=== PATIENT | female | born 2000 | race Caucasian/White ===

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

== ENCOUNTER 2019-01-02 08:41 | Emergency (ER) | payer MEDICAID ==
--- NOTE | 2019-01-02 08:51 | Emergency Department Record ---
History of Present Illness - General Chief complaint: complication Stated complaint: NAUSEATED Time Seen by Provider: 01/02/19 08:42 Source: Patient Mode of Arrival: Ambulatory Limitations: No limitations - History of Present Illness Initial comments: The patient is a female who is 19 weeks by US who has had a chronic problem with nausea since being and is now out of [facility]. She has come to the ER multiple times for it and has not contacted her OB. The patient denies any other issues and is NOT having any pain, bleeding, cramping, dysuria, or fever. MD Complaint: Other - Related Data Previous Rx's Medication Instructions Recorded Ondansetron [Zofran Odt] 4 mg SL .Q4-6H PRN #12 tab.brittnidis 11/29/18 Ondansetron [Zofran Odt] 4 mg PO Q8H PRN #20 tab.rapdis 12/13/18 Allergies Allergy/AdvReac Type Severity Reaction Status Date / Time Penicillins Allergy PT UNSURE Verified 01/02/19 08:52 OF REACTION Review of Systems Constitutional: Denies: Chills, Fever Eyes: Denies: Eye discharge ENT: Denies: Congestion Respiratory: Denies: Cough, Dyspnea Past Medical History - SOCIAL HISTORY Smoking Status: Never smoker - RESPIRATORY Hx Respiratory Disorders: Yes Hx Asthma: Yes - CARDIOVASCULAR Hx Cardio Disorders: No Comment:: mom states ?heart stent as a baby when she was premature - NEURO Hx Neuro Disorders: Yes Hx Dizziness: Yes - GI Hx GI Disorders: Yes Hx Reflux: Yes Hx Nausea/Vomiting: Yes (Chronic) - Hx Genitourinary Disorders: No Comment:: Now - ENDOCRINE Hx Endocrine Disorders: No - MUSCULOSKELETAL Hx Musculoskeletal Disorders: No - PSYCH Hx Psych Problems: Yes Hx Depression: Yes - HEMATOLOGY/ONCOLOGY Hx Hematology/Oncology Disorders: No Family Medical History Hx Diabetes: Grandparents Hx HTN: Mother Physical Exam - General General Appearance: Alert, Oriented x3, Cooperative, No acute distress - Head Head exam: Atraumatic, Normocephalic - Eye Eye exam: Normal appearance - Neck Neck exam: Normal inspection, Full ROM. negative: Tenderness - Respiratory Respiratory exam: Normal lung sounds bilaterally. negative: Respiratory distress - Cardiovascular Cardiovascular Exam: Regular rate, Normal rhythm, Normal heart sounds - GI/Abdominal GI/Abdominal exam: Soft, Normal bowel sounds. negative: Rebound, Rigid, Tenderness - Extremities Extremities exam: Normal inspection, Full ROM, Normal capillary refill. negative: Tenderness - Neurological Neurological exam: Alert, Normal gait. negative: Abnormal gait, Motor sensory deficit - Psychiatric Psychiatric exam: negative: Anxious Course - Reevaluation(s) Reevaluation #1: I did discuss the case with Dr. Love who is literacy education professor for the patient's OB Dr. Devlin and she does agree with the plan to discharge and have the patient contact their office for further nausea medicine. 01/02/19 08:54 Reevaluation #2: FHT's 125. 01/02/19 09:03 Disposition Disposition: Discharge Clinical Impression: Nausea and vomiting during Disposition: Home, Self-Care Condition: (2) Stable Instructions: (ED) Additional Instructions: Please call your OB doctors office for further instructions. Forms: Patient Portal Access Time of Disposition: 08:56 Quality - Quality Measures Quality Measures: Adult Bronchitis (18-64yr) - Adult Bronchitis Quality Measure: Measure #116: Avoidance of ABX w/Adult Bronchitis ICD10 Codes Entered: Yes View Details: Yes Is patient being admitted: No Avoidance of ABX w/Bronchitis: <ABX neither prescribed nor dispensed> [4124F] - Blood Pressure Screening View Details: Yes Does Patient Have Any of the Following: No Blood Pressure Classification: Normal BP Reading Systolic Measurement: 113 Diastolic Measurement: 75 Screening for High Blood Pressure: < Normal BP, F/U Not Required > [G8783]
== END 2019-01-02 09:13 | disposition home or self-care (01) ==
LOC: ER 08:41
DX: O21.0 Mild hyperemesis gravidarum (principal); Z3A.19 19 weeks gestation of pregnancy
CPT/HCPCS: 99283

== ENCOUNTER 2019-05-07 13:31 | Emergency (ER) | payer MEDICAID ==
--- NOTE | 2019-05-07 14:39 | Emergency Department Record ---
History of Present Illness - General Chief complaint: complication Stated complaint: /CRAMPS Time Seen by Provider: 05/07/19 14:26 Source: Patient, RN notes reviewed Mode of Arrival: Ambulatory - History of Present Illness Initial comments: Patient is and due June 02 and she did have Dr Devlin but since Jan no Dr because of an insurance change and Grandmother is trying to get her into OB at [facility]. Patient 8 months preg and she had one US done and she did have blood work done. Currently she has [employer] complete and she had one cramp at 8 am today and one cramp 10 minute ago. Patient denies vaginal bleeding and denies vaginal discharge. Grandmother and father her with patient. No dysuria and no fevers or coughing. Patient would like to deliver at [facility]. Onset/Timin -: Days(s) Severity: Moderate Severity scale (1-10): 6 Quality: Cramping Consistency: Intermittent Improves with: None Worsens with: None Associated symptoms: Denies other symptoms Vaginal bleeding: None Number of weeks : 36 Pre-zach care: None - Related Data Previous Rx's Medication Instructions Recorded Ondansetron [Zofran Odt] 4 mg SL .Q4-6H PRN #12 tab.rapdis 11/29/18 Ondansetron [Zofran Odt] 4 mg PO Q8H PRN #20 tab.rapdis 12/13/18 Allergies Allergy/AdvReac Type Severity Reaction Status Date / Time Penicillins Allergy PT UNSURE Unverified 01/02/19 13:24 OF REACTION Review of Systems Reviewed: No additional complaints except as noted below Constitutional: Reports: As per HPI. Denies: Chills, Fever, Malaise, Night sweats, Weakness, Weight change Eyes: Reports: As per HPI. Denies: Eye discharge, Eye pain, Photophobia, Vision change ENT: Reports: As per HPI. Denies: Congestion, Dental pain, Ear pain, Epistaxis, Hearing loss, Throat pain Respiratory: Reports: As per HPI. Denies: Cough, Dyspnea, Hemoptysis, Stridor, Wheezes Cardiovascular: Reports: As per HPI. Denies: Arrhythmia, Chest pain, Dyspnea on exertion, Edema, Murmurs, Orthopnea, Palpitations, Paroxysmal nocturnal dyspnea, Rheumatic Fever, Syncope Endocrine: Reports: As per HPI. Denies: Fatigue, Heat or cold intolerance, Polydipsia, Polyuria Gastrointestinal: Reports: As per HPI. Denies: Abdominal pain, Constipation, Diarrhea, Hematemesis, Hematochezia, Melena, Nausea, Vomiting Genitourinary: Reports: As per HPI, Other ( 36 weeks). Denies: Abnormal menses, Discharge, Dyspareunia, Dysuria, Frequency, Hematuria, Incontinence, Retention, Urgency Musculoskeletal: Reports: As per HPI. Denies: Arthralgia, Back pain, Gout, Joint swelling, Myalgia, Neck pain Skin: Reports: As per HPI. Denies: Bruising, Change in color, Change in hair/nails, Lesions, Pruritus, Rash Neurological: Reports: As per HPI. Denies: Abnormal gait, Confusion, Headache, Numbness, Paresthesias, Seizure, Tingling, Tremors, Vertigo, Weakness Psychiatric: Reports: As per HPI. Denies: Anxiety, Auditory hallucinations, Depression, Homicidal thoughts, Suicidal thoughts, Visual hallucinations Hematological/Lymphatic: Reports: As per HPI. Denies: Anemia, Blood Clots, Easy bleeding, Easy bruising, Swollen glands Past Medical History - SOCIAL HISTORY Smoking Status: Never smoker Alcohol Use: None Drug Use: None - RESPIRATORY Hx Respiratory Disorders: Yes Hx Asthma: Yes - CARDIOVASCULAR Hx Cardio Disorders: No Comment:: mom states ?heart stent as a baby when she was premature - NEURO Hx Neuro Disorders: Yes Hx Dizziness: Yes - GI Hx GI Disorders: Yes Hx Reflux: Yes Hx Nausea/Vomiting: Yes (Chronic) - Hx Genitourinary Disorders: No Comment:: Now - ENDOCRINE Hx Endocrine Disorders: No - MUSCULOSKELETAL Hx Musculoskeletal Disorders: No - PSYCH Hx Psych Problems: Yes Hx Depression: Yes - HEMATOLOGY/ONCOLOGY Hx Hematology/Oncology Disorders: No Family Medical History Any Significant Family History?: Yes Hx Diabetes: Grandparents Hx HTN: Mother Physical Exam - General General Appearance: Alert, Oriented x3, Cooperative, No acute distress - Head Head exam: Normal inspection - Eye Eye exam: Normal appearance, PERRL Pupils: Normal accommodation - ENT ENT exam: Normal exam, Mucous membranes moist, Normal external ear exam, Normal orophraynx, TM's normal bilaterally Ear exam: Normal external inspection. negative: External canal tenderness Nasal Exam: Normal inspection. negative: Discharge, Sinus tenderness Mouth exam: Normal external inspection, Tongue normal Teeth exam: Normal inspection. negative: Dental caries Throat exam: Normal inspection. negative: Tonsillar erythema, Tonsillar exudate - Neck Neck exam: Normal inspection, Full ROM. negative: Tenderness - Respiratory Respiratory exam: Normal lung sounds bilaterally. negative: Respiratory distress - Cardiovascular Cardiovascular Exam: Regular rate, Normal rhythm, Normal heart sounds - GI/Abdominal GI/Abdominal exam: Soft, Normal bowel sounds. negative: Tenderness - Rectal Rectal exam: Deferred - exam: Other (bimanual cervix fingertip) - Extremities Extremities exam: Normal inspection, Full ROM, Normal capillary refill. negative: Tenderness - Back Back exam: Reports: Normal inspection, Full ROM. Denies: Muscle spasm, Rash noted, Tenderness - Neurological Neurological exam: Alert, Normal gait, Oriented X3, Reflexes normal - Psychiatric Psychiatric exam: Normal affect, Normal mood - Skin Skin exam: Dry, Intact, Normal color, Warm Course Vital Signs 05/07/19 13:42 Temperature 97.8 F Pulse Rate 100 H Respiratory 20 Rate Blood Pressure 113/66 Pulse Ox 97 - Reevaluation(s) Reevaluation #1: mom feels motion and heart tones 124. Will call [facility] OB liquefaction and regasification helper. No OB here. 05/07/19 15:26 Reevaluation #2: discussed case with Dr Reddy at [facility] and will transfer the patient to [facility] OB [address] [facility] for evaluation. Pateint chart obtained from Dr Devlin's office and she is O positive and US from dec shows single fetus. 05/07/19 15:59 Medical Decision Making - Lab Data Result diagrams: 05/07/19 14:50 05/07/19 14:50 Disposition Clinical Impression: Qualifiers: Weeks of gestation: 36 weeks Qualified Code(s): Z3A.36 - 36 weeks gestation of Disposition: Acute Care Hospital Transfer Instructions: Early Labor Signs (ED) Additional Instructions: Go to [facility] OB [address] [facility] for evaluation at OB triage Forms: Patient Portal Access Time of Disposition: 16:05 Quality - Quality Measures Quality Measures: N/A - Adult Bronchitis ICD10 Codes Entered: Yes Is patient being admitted: No Avoidance of ABX w/Bronchitis: <ABX neither prescribed nor dispensed> [4124F] - Blood Pressure Screening Does Patient Have Any of the Following: No Blood Pressure Classification: Normal BP Reading Systolic Measurement: 113 Diastolic Measurement: 66 Screening for High Blood Pressure: < Normal BP, F/U Not Required > [G1774]
[2019-05-07 15:18] LABS: ABSOLUTE NEUTROPHIL COUNT 4.39; BASO % 0.2 % (0-6); EOS % 1.1 % (0-6); GRAN % 67.3 % (47-80); HEMATOCRIT 41.4 % (35.0-47.0); HEMOGLOBIN 13.3 gm/dl (11.6-16.0); LYMPH % 24.5 % (16-45); MEAN CELL VOLUME 88.7 fl (81-97); MEAN CORPUSCULAR HEMOGLOBIN 28.5 pg (27-33); MEAN CORPUSCULAR HGB CONC 32.1 g/dl (32-36); MEAN PLATELET VOLUME 9.4 fl (7.4-10.4); MONO % 6.9 % (0-9); PLATELET COUNT 223 K/uL (130-400); RED BLOOD COUNT 4.67 M/uL (3.80-5.40); RED CELL DISTRIBUTION WIDTH 13.6 % (11.5-14.5); WHITE BLOOD COUNT W/O DIFF 6.5 K/uL (4.2-12.2)
[2019-05-07 15:29] LABS: BLOOD UREA NITROGEN 9 mg/dL (6-20); CREATININE 0.4 mg/dL (0.5-0.9)
[2019-05-07 15:32] LABS: GLUCOSE,RANDOM 90 mg/dL (74-109)
[2019-05-07 16:00] LABS: BILIRUBIN,TOTAL < 0.20 mg/dL (0.2-1.0)
[2019-05-07 16:01] LABS: TOTAL PROTEIN 6.7 g/dL (6.6-8.7)
[2019-05-07 16:06] LABS: ALBUMIN 3.6 g/dL (4.0-5.0); ALKALINE PHOSPHATASE 166 U/L (35-104); ALT/SGPT 9 U/L (<33); AST/SGOT 20 U/L (10.0-35.0)
[2019-05-07 16:08] LABS: BILIRUBIN,DIRECT < 0.2 mg/dL (0-0.3)
== END 2019-05-07 16:30 | disposition short-term general hospital (02) ==
LOC: ER 13:31
DX: O60.03 Preterm labor without delivery, third trimester (principal); Z3A.36 36 weeks gestation of pregnancy
CPT/HCPCS: 80048; 80076; 85025; 86901; 99285